=== PATIENT | female | born 1965 | race Caucasian/White ===

== ENCOUNTER 2016-09-27 10:27 | Observation (INO) | payer OTHER ==
[2016-09-21 10:55] LABS: HEMATOCRIT 40.5 % (36.0-48.0)
[2016-09-21 11:13] LABS: BUN (BLOOD UREA NITROGEN) 9 MG/DL (6-23); CALCIUM, SERUM 8.8 MG/DL (8.5-10.4); CHLORIDE, SERUM 109 MMOL/L (96-112); CO2 (CARBON DIOXIDE) 27 MMOL/L (24-34); GFR AFRICAN AMERICAN 86 ML/MIN (>=60); GFR NON AFRICAN AMERICAN 74 ML/MIN (>=60); GLUCOSE, SERUM 109 MG/DL (60-99); POTASSIUM, SERUM 3.8 MMOL/L (3.5-5.3); SODIUM, SERUM 140 MMOL/L (135-148)
--- NOTE | ~2016-09-27 | OP ---
Record Of Operation [facility] [address] [place]. [address] NAME: STEPHON TEE : 63 STATUS : DIS Gabriel PAT#: [id number] AGE: 50 ADM/REG DATE : 09/27/16 MR#: [id number] REPORT SERV DATE: 10/08/16 DICTATED BY: ARPAN GONZALES DATE: 10/08/16 REPORT STATUS : Draft TRANSCRIBED BY: DEYANIRA DATE: 10/08/16 DATE OF PROCEDURE: 09/27/2016 PREOPERATIVE DIAGNOSES: 1. 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 POSTOPERATIVE DIAGNOSES: 1. 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 PROCEDURES: 1. Left talonavicular joint arthrodesis with internal fixation with bone grafting. 2. Left subtalar joint arthrodesis with internal fixation and bone grafting. 3. Left bone marrow concentrate aspiration from the calcaneus, code #[id number]. ANESTHESIA: General local anesthetic. ESTIMATED BLOOD LOSS: Minimal. COMPLICATIONS: None. INJECTABLES: Approximately 40 mL of a 1:1 mixture of Xylocaine plain and 0.5% Marcaine plain. MATERIALS: Include Arthrex 6.7 cannulated screw fixation, Arthrex 4.5 cannulated screw, compression bone staple with screw fixation from Arthrex as well, bone marrow concentrate, FlexiGRAFT, and StimuBlast bone allografting soaked in bone marrow concentrate, 2-0, 4-0 Vicryl, 4-0 nylon. PROCEDURE IN DETAIL: Under mild sedation, the patient was brought to the operating room and placed on the operating table in supine position. Following general anesthesia, local anesthesia obtained about the patient's left ankle. Left foot, ankle, and lower leg were scrubbed, prepped, and draped in usual aseptic manner. Attention was directed to the procedure. Procedure #1 is left subtalar joint arthrodesis with internal fixation. Attention directed to the lateral aspect of the patient's left subtalar joint where a curvilinear incision was made along the course of the left subtalar joint beginning just inferior and posterior to the distal tip of the lateral malleolus extending across the sinus tarsi in a curvilinear position and ending at the level of the region of the 4th metatarsal base. The incision was deepened to subcutaneous tissue with care being taken to identify and retract all vital neurovascular structures. All bleeders were cauterized and ligated as necessary. At this time, attention was directed to the peroneal tendon sheath, which was gently retracted inferiorly and a linear deep fascia incision was made at the inferior border of the extensor brevis muscle belly at its insertion of the sinus tarsi extending to the calcaneofibular Record Of Operation [facility] [address] [place]. [address] NAME: STEPHON TEE : 63 STATUS : DIS Gabriel PAT#: [id number] AGE: 50 ADM/REG DATE : 09/27/16 MR#: [id number] REPORT SERV DATE: 10/08/16 DICTATED BY: ARPAN GONZALES DATE: 10/08/16 REPORT STATUS : Draft TRANSCRIBED BY: DEYANIRA DATE: 10/08/16 ligament, which was severed and tagged for later reapproximation. At this time, Ida's tonsil was resected and the interosseous ligament within the subtalar joint sinus tarsi was severed and joint distraction ensued to open the subtalar joint. Posterior facet was visualized with significant arthritic changes present. At this time, utilizing a combination of curettes, rotary bur, and subchondral drilling, the remaining cartilaginous tissues were resected as well as penetration of the subchondral plate. Subchondral bleeding was appreciated. This was performed to the posterior facet of the calcaneus as well as to the cartilaginous surface of the talus within the subtalar joint. Copious irrigation ensued. At this time, attention was directed to the next procedure. Next procedure is bone marrow concentrate aspiration code #[id number]. At this time, the tourniquet was released temporarily as a small stab incision was made to the lateral border of the calcaneal wall. Blunt dissection was continued down to the level of the periosteum. Periosteum then was freed with a Campbell elevator as the trocar and cannula were inserted into the calcaneus into the medullary portion of the calcaneus. At this time, the trocar was removed and the cannula was left in place. An aspiration of bone marrow ensued aspirating approximately 60-80 mL. This, at this time, was given off the back table to the rep who prepared the bone marrow concentrate in a sterile fashion. After preparation, combination of FlexiGRAFT and StimuBlast DBM bone chips and sponge was then soaked in the bone marrow concentrate and was then placed within the subtalar joint. At this time, a guidewire was placed into the calcaneus and into the talus where a cannulated 6.7 cancellous Arthrex screw was placed across the subtalar joint and posterior facet with excellent compression and fixation. Gentle irrigation ensued. Next procedure is left talonavicular joint arthrodesis with internal fixation and bone allografting with bone marrow concentrate. At this time, attention was now directed to the dorsal medial aspect of the patient's talonavicular joint where a linear incision laid medial and parallel to the anterior tibial tendon. The incision was deepened to subcutaneous tissue with care being taken to identify and retract all vital neurovascular structures. All bleeders were cauterized and ligated as necessary. At this time, a linear capsular incision made over the dorsal medial aspect of the talonavicular joint. Deep retraction ensued to the anterior tibial tendon as well as joint capsule. Significant synovitis was noted to the talonavicular joint, and upon resection, cartilaginous loss was noted to the dorsal third of the talus and calcaneus. At this time, continued joint distraction ensued for further visualization plantarly and the remaining cartilaginous tissue was resected with penetration of subchondral plate with a combination of curettes, rotary bur, and subchondral drilling. At this time, a combination of DBM FlexiGRAFT and StimuBlast was then placed within the talonavicular joint. The distraction was then removed as permanent fixation was placed with a combination of 4.5 cancellous Arthrex screw as well as a compression staple with screw fixation. Excellent stabilization was noted. Excellent compression was appreciated. X-ray showed excellent fixation and placement and gentle irrigation ensued. At this time, attention directed to closure where the capsular and deep fascia tissues reapproximated using 2-0 Vicryl. Subcutaneous tissue reapproximated and coapted utilizing 4-0 Vicryl. The calcaneofibular ligament laterally was reapproximated and coapted using 2-0 Vicryl as well. Skin was reapproximated using 4-0 nylon in an interrupted and continuous suture technique. A well-padded sterile dressing, well-padded posterior splint was placed about the patient's left foot, ankle, and lower leg. The patient Record Of [facility] [address] [place]. [address] NAME: STEPHON TEE : 63 STATUS : DIS Gabriel PAT#: [id number] AGE: 50 ADM/REG DATE : 09/27/16 MR#: [id number] REPORT SERV DATE: 10/08/16 DICTATED BY: ARPAN GONZALES DATE: 10/08/16 REPORT STATUS : Draft TRANSCRIBED BY: DEYANIRA DATE: 10/08/16 tolerated procedure and anesthesia well and was transferred to recovery room with vital signs stable and vascular status intact to all toes. The patient will be admitted for 23- hour observation and for pain control. If tolerating pain medicines within 24 hours, we will send home and will also begin Eliquis for DVT prophylaxis. I will follow the patient on the floor. Orders were written. DANNY/DEYANIRA Demian Gonzales D.P.M. / [id number] CC: Owen Greer D.O.
--- NOTE | ~2016-09-27 | CN ---
Consultation Report [facility] [address] [place]. [address] NAME: STEPHON TEE : 63 STATUS : ADM Gabriel PAT#: [id number] AGE: 50 ADM/REG DATE : 09/27/16 MR#: [id number] REPORT SERV DATE: 09/28/16 DICTATED BY: SIMRAN TADEO DATE: 09/28/16 REPORT STATUS : Draft TRANSCRIBED BY: MODL DATE: 09/28/16 CONSULTATION DATE OF CONSULTATION: 09/28/2016 REASON FOR CONSULTATION: Consulted for medical management. IDENTIFYING DATA: 1. PCP is Rosa M Fabian. 2. Surgeon in the past, Romeo Madera. 3. Orthopedist, Manuel Velasquez. HISTORY OF PRESENT ILLNESS: This is a pleasant 50-year-old female with a history of hypertension, hypercholesterolemia, hypothyroidism, who was admitted to Dr. Manuel Velasquez for arthritis and swelling to her left lower extremity. She is presently status post left subtotal joint arthrodesis with internal fixation, left tibial medial malleolar osteotomy, left talar dome repair with allografting on 09/27/2016. The hospitalist group has been consulted to help manage anything medically while she is inpatient. 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 She has had a breast biopsy in 2003 as well as a right ankle repair with screws in 2006. The patient's history was obtained through interview with the patient, as well as review of [facility] and [facility]. PAST MEDICAL HISTORY: 1. Headaches. 2. Hay fever. 3. Hypertension. 4. High cholesterol. 5. Wears glasses. 6. Chronic left knee pain. 7. Goiter. 8. Endometriosis. 9. Juan Francisco's thyroiditis. 10.Depression. HOME MEDICATIONS: 1. Lipitor 10 mg p.o. at bedtime. 2. Levothyroxine 150 mcg p.o. daily. 3. Propranolol XL 80 mg p.o. at bedtime. ALLERGIES: TO OXYCODONE, PENICILLIN, MORPHINE, AND CODEINE. SOCIAL HISTORY: The patient is , 26 years. Has two children. No tobacco, alcohol, or illicit drug use. Has a home with numerous stairs and has a scooter that she has had to use. She states postoperatively she will be staying at her mother's to be able to get Consultation Report [facility] [address] [place]. [address] NAME: STEPHON TEE : 63 STATUS : ADM Gabriel PAT#: [id number] AGE: 50 ADM/REG DATE : 09/27/16 MR#: [id number] REPORT SERV DATE: 09/28/16 DICTATED BY: SIMRAN TADEO DATE: 09/28/16 REPORT STATUS : Draft TRANSCRIBED BY: MODVerito DATE: 09/28/16 around better. 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 FAMILY HISTORY: 1. Mother had coronary artery disease and coronary stents. 2. Father had coronary artery disease with stents and hypertension. 3. The patient has one sister who has rheumatoid arthritis. 4. The patient has one brother who is alive and healthy. SURGICAL HISTORY: 1. Hysterectomy in 2009. 2. Thyroid cyst removal in 2001. 3. Left breast biopsy 10/13/2003. 4. Right ankle repair after she had broken it with a metal plate and 5 screws placed in 2006. 5. Exploratory lap in . 6. Thyroidectomy 01/11/2016. REVIEW OF SYSTEMS: A full 10-point review of systems obtained, any pertinent positives were mentioned in HPI. Otherwise, systems are negative. The patient is alert and oriented x3. She has no nausea and vomiting. No abdominal pain. Denies chest pain. No fever. Denies shortness of breath. No confusion or agitation. Denies palpitations. States presently she is getting good pain control with her QUILLER OPERATOR Dilaudid, although she has itching relating to using narcotics. PHYSICAL EXAMINATION: VITAL SIGNS: Vital signs from today; blood pressure 148/84, respiratory rate 18, heart rate 83, temperature 98.9, O2 saturation 94% on room air. GENERAL: This is a very pleasant 50-year-old female, resting in bed. No acute distress. She is awakened for this assessment. She has no focal deficits. NEUROLOGIC: She is alert and oriented x3. Her head is atraumatic, normocephalic. Her cranial nerves are 2 through 12 are grossly intact. Her mood is pleasant and appropriate. She has her mother at bedside. NECK: Supple. Trachea is midline. No JVD noted. No lymphadenopathy. EENT: Sclerae are nonicteric. Pupils are equal and reactive to light. Nares are patent. Her mucous membranes are moist. Tongue is midline. No deviation. CHEST: No pain with palpation. LUNGS: Clear to auscultation bilaterally. She has normal respiratory effort. She is presently on room air. She has no increased work of breathing with conversation and she is encouraged to use an incentive spirometer to prevent atelectasis and pneumonia. CARDIOVASCULAR: S1, S2. No obvious murmurs, rubs, or gallops. She is on telemetry. She displays normal sinus rhythm with a rate at 91. ABDOMEN: Soft, nontender with bowel sounds active. No palpable organomegaly. Last bowel movement noted was 09/26/2016. EXTREMITIES: Normal distal pulses to right lower extremity. No edema. No calf tenderness. Consultation Report [facility] [id number] [facility] [place]. [address] NAME: STEPHON TEE : 63 STATUS : ADM Gabriel PAT#: [id number] AGE: 50 ADM/REG DATE : 09/27/16 MR#: [id number] REPORT SERV DATE: 09/28/16 DICTATED BY: SIMRAN TADEO DATE: 09/28/16 REPORT STATUS : Draft TRANSCRIBED BY: DEYANIRA DATE: 09/28/16 Her left lower extremity dressing is clean, dry, and intact. SKIN: Warm and dry. No unusual rashes or lesions. Normal color and turgor. PSYCHIATRIC: The patient is pleasant, cooperative. Appropriate mood and affect. LABORATORY DATA: Sodium 140, potassium 3.8, chloride 109, BUN 9, creatinine 0.90, GFR 86, glucose 109, calcium 8.8. Hemoglobin 14.0, hematocrit 40.5. ASSESSMENT AND PLAN: 1. Hypothyroidism. The patient has had thyroid cyst as well as a thyroidectomy in the past and had Juan Francisco's thyroiditis. Aware. She is on levothyroxine at home. She is presently on telemetry. She displays a sinus rhythm with a rate in the 90s. We will continue her levothyroxine daily and check a TSH and a free T4 this morning. 2. Hypertension. Aware. The patient will be placed on p.r.n. hydralazine for a systolic blood pressure greater than 165 as needed. She is on propranolol XL at home for which she takes at bedtime and she does not presently have it available, it will have to be obtained from home. 3. Hypercholesterolemia. Aware. The patient presently is on Lipitor which is her home medication. 4. Pruritus. Postop, the patient is placed on a QUILLER OPERATOR. She states that even though she does not have a true allergy to opioids, she tends to get itching when she takes any at all. She has Benadryl 25 p.o. given for her itching. 5. A.m. labs; BMP, magnesium, phosphorus, TSH, free T4, CBC. The hospitalist group would like to thank you for this consultation. Please let us know if we could be of further assistance. MARK Simran Tadeo NP / [id number] CC: Owen Greer D.O.
[~2016-09-27 10:27] MED LIST: INNOPRAN XL80 MG PO; LEVOTHYROXIN150 MCG PO; LIPITOR10 PO; SYN1 PO; WELLXL300 PO
[2016-09-28 08:01] LABS: BASOPHILS 0.1 %; BASOPHILS ABSOLUTE 0.01 10/3/uL (0.0-0.16); EOSINOPHILS 0 %; HEMATOCRIT 36.8 % (36.0-48.0); HEMOGLOBIN 12.6 g/dL (12.0-16.0); IMMATURE GRANULOCYTES 0.4 %; IMMATURE GRANULOCYTES ABSOLUTE 0.05 10/3/uL (0.0-0.11); LYMPHOCYTES 6.4 %; LYMPHOCYTES ABSOLUTE 0.92 10/3/uL (0.67-4.30); MEAN CORPUS HGB CONC 34.2 g/dL (32.0-36.0); MEAN CORPUSCULAR HEMOGLOB 30.2 pg (26.0-34.0); MEAN CORPUSCULAR VOLUME 88.2 fL (80-100); MEAN PLATELET VOLUME 10.2 fL (9.2-13.0); MONOCYTES 6.7 %; MONOCYTES ABSOLUTE 0.96 10/3/uL (0.21-1.20); NEUTROPHILS 86.4 %; NEUTROPHILS ABSOLUTE 12.33 10/3/uL (2.02-8.40); PLATELET COUNT 186 10/3/uL (150-400); RBC DISTRIBUTION WIDTH 12.4 % (12.0-16.0); RED CELL COUNT 4.17 10/6/uL (4.0-5.6)
[2016-09-28 08:03] LABS: MANUAL DIFF NO %; WHITE BLOOD CELLS 14.3 10/3/uL (4.5-10.5)
[2016-09-28 08:25] LABS: BUN (BLOOD UREA NITROGEN) 11 MG/DL (6-23); CALCIUM, SERUM 8.5 MG/DL (8.5-10.4); CHLORIDE, SERUM 106 MMOL/L (96-112); CO2 (CARBON DIOXIDE) 24 MMOL/L (24-34); CREATININE 0.82 MG/DL (0.55-1.02); GFR AFRICAN AMERICAN 96 ML/MIN (>=60); GFR NON AFRICAN AMERICAN 83 ML/MIN (>=60); GLUCOSE, SERUM 130 MG/DL (60-99); PHOSPHORUS, SERUM 2.2 MG/DL (2.5-4.5); POTASSIUM, SERUM 3.9 MMOL/L (3.5-5.3); SODIUM, SERUM 138 MMOL/L (135-148); ULTRASENSITIVE TSH 0.125 MCIU/ML (0.358-3.740)
[2016-09-28] MEDS ORDERED: DIL2TAB PO (15:27)
[2016-09-28] MEDS ORDERED: PR25 PO (15:28)
[2016-09-28] MEDS ORDERED: ELIQUIS 2.5 MG2.5 MG PO (15:28)
== END 2016-09-28 17:31 | disposition home or self-care (01) ==
LOC: SDC 10:27 → 1SO 19:28
PROVIDERS: Nurse Practitioner Family; Podiatrist Foot & Ankle Surgery
PROC: 0SGJ04Z Fusion of Left Tarsal Joint with Internal Fixation Device, Open Approach (ICD-10-PCS; principal; 2016-09-27 11:45)
DX: M13.872 Other specified arthritis, left ankle and foot (principal); M87.9 Osteonecrosis, unspecified; I10 Essential (primary) hypertension; E78.00 Pure hypercholesterolemia, unspecified; G89.29 Other chronic pain; L29.9 Pruritus, unspecified; E03.9 Hypothyroidism, unspecified; F32.9 Major depressive disorder, single episode, unspecified; N80.9 Endometriosis, unspecified; E06.3 Autoimmune thyroiditis; Z79.899 Other long term (current) drug therapy; Z90.710 Acquired absence of both cervix and uterus; Z90.89 Acquired absence of other organs; Z88.0 Allergy status to penicillin; Z88.5 Allergy status to narcotic agent
CPT/HCPCS: 76000; 80048; 83735; 84100; 84439; 84443; 85014; 85018; 85025; 93005; 96374; 97161-GP; A9270-GY; C1713; C1769; G0378; J0690; J1170; J2250; J2270; J2405; J3010